=== PATIENT | male | born 1985 | race Caucasian/White ===

== ENCOUNTER 2020-06-23 09:23 | Emergency (ER) | payer SELFPAY ==
[~2020-06-23] VITALS: Ht 180.3 cm; Wt 95.3 kg
[2020-06-23] MEDS ORDERED: TETANUS/DIPHTHERIA TOX ADULT 0.5 ML SYR IM ONE (09:30)
[2020-06-23] MEDS ORDERED: BUPIVACAINE 0.5%/EPI 30 ML SDV INJ ONE (09:30)
[2020-06-23] MEDS ORDERED: LIDOCAINE 2% /EPINEPHRINE 20 ML SDV INJ ONE (09:40)
== END 2020-06-23 10:51 | disposition home or self-care (01) ==
LOC: ER 09:28
DX: S81.812A Laceration without foreign body, left lower leg, initial encounter (principal); W20.8XXA Other cause of strike by thrown, projected or falling object, initial encounter; Y93.01 Activity, walking, marching and hiking; Y99.0 Civilian activity done for income or pay
CPT/HCPCS: 12002; 90471; 90714; 99282; J2001

== ENCOUNTER 2020-07-07 11:15 | Emergency (ER) | payer SELFPAY ==
[~2020-07-07] VITALS: Ht 180.3 cm; Wt 95.3 kg
== END 2020-07-07 13:05 | disposition home or self-care (01) ==
LOC: ER 13:05 → EEVIPCON 13:05
DX: Z48.02 Encounter for removal of sutures (principal)
CPT/HCPCS: 99283